=== PATIENT | female | born 1975 | race Caucasian/White ===

== ENCOUNTER → 2016-12-09 | Day surgery (SDC) | payer OTHER ==
--- NOTE | 2016-12-08 23:29 | HHI.HP ---
HPI Chief Complaint abnormal uterine bleeding and persistent / recurrent abnormal pap smears Date Seen: Dec 09, 2016 Travel History International Travel<30 Days: No Contact w/Intl Traveler<30Days: No Known Affected Area: No History of Present Illness HPI The patient is a 41 year old female with a long standing history of heavy menstrual flow and painful cramps. She has recently developed heavier menstrual flow and her menstrual cramps have become even more painful. Her pelvic ultrasound showed adenomyosis. In addition, the patient has been followed by previous shoe repair cobbler for abnormal pap smears for more than 2 years. Since her recent pap smear came back abnormal as well, the decision was made to proceed with surgical treatment. Para: 3 : 3 Miscarriage: 0 : 0 History Past Medical History Narrative Medical Migraine headaches Hypothyroidism Obstetric History Obstetric History Patient had 3 pregnancies and 3 vaginal deliveries Past Surgical History Narrative Surgical -- D&C for abnormal bleeding x 2 -- Breast augmentation -- Abdominoplasty Family History Family History: Negative Social History Alcohol Use: No Tobacco Use: No Substance Abuse: No Allergies-Medications (Allergen,Severity, Reaction): Coded Allergies: No Known Allergies (Unverified , 07/21/16) Home Meds No Active Prescriptions or Reported Meds Review of Systems General / Constitutional: No: Fever, Weight Gain, Chills, Other Eyes: No: Diploplia, Blurred Vision, Visual changes, Pain, Photophobia HENT: No: Headaches, Vertigo, Lightheadedness Cardiovascular: No: Irregular Rhythm, Chest Pain or Discomfort, Palpitations, Tachycardia, Syncope, Varicosities, Edema, Cyanosis Respiratory: No: Cough, Short of Breath, Other Gastrointestinal: No: Nausea, Vomiting, Diarrhea Genitourinary: Pelvic Pain, Menorrhagia, No: Decreased Urinary Output, Oliguria Musculoskeletal: No: Limited ROM, Weakness, Cramping, Edema, Pain Skin: No Rash, No Itching, No Dryness, No Lumps, No Change in Pigmentation, No Change in Nails, No Alopecia, No Lesions Neurologic: No: Weakness, Dizziness, Syncope, Focal Abnormalities, Coordination Problem, Headache, Slurred Speech, Seizures Psychiatric: No: Depression, Suicidal Ideations, Homicidal Ideation Endocrine: No: Heat Intolerance, Cold Intolerance, Polydipsia, Polyuria, Other Physical Exam Narrative GENERAL: Well-nourished, well-developed patient. SKIN: Warm and dry. HEAD: Normocephalic and atraumatic. EYES: No scleral icterus. No injection or drainage. ENT: No nasal drainage noted. Mucous membranes pink. Airway patent. NECK: Supple, trachea midline. No JVD. CARDIOVASCULAR: Regular rate and rhythm without murmurs, gallops, or rubs. RESPIRATORY: Breath sounds equal bilaterally. No accessory muscle use. BREASTS: Bilateral exam showed no masses , no retractions, no nipple discharge. ABDOMEN/GI: Abdomen soft, non-tender, bowel sounds present, no rebound, no guarding GENITOURINARY: External Genitalia: intact and normal in appearance Uterus: normal size, tender to deep palpation; no adnexal masses EXTREMITIES: No cyanosis or edema. BACK: Nontender without obvious deformity. No CVA tenderness. NEUROLOGICAL: Awake and alert. Motor and sensory grossly within normal limits. Five out of 5 muscle strength in all muscle groups. Normal speech. Data Data Vital Signs Reviewed: Yes Assessment/Plan Problem List: (1) Menorrhagia (2) Dysmenorrhea (3) Abnormal uterine bleeding (AUB) (4) Uterus, adenomyosis (5) Cervical high risk human papillomavirus (HPV) DNA test positive (6) Low grade squamous intraepithelial lesion on cytologic smear of cervix ( lgsil) Assessment and Plan 1. 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 discussed / reviewed the procedure -- LEEP + hysteroscopy, D&C and endometrial ablation 3. discussed the risks, benefits and alternatives of the procedure with the patient 4. discussed the risk of infection, bleeding, damage to vaginal renteria and to internal organs if uterine perforation occurs (bowel, bladder, vessels, ureters , nerves), need for further treatment or procedures. 5. patient's questions were answered 6. she verbalized understanding 7. informed consent was obtained Alicja Baron MD Dec 08, 2016 23:29
[~2016-12-09] MED LIST: KETOROLAC TROMETHAMINE 30 MG/ML (IVP) VIAL IV PUSH ONE; LACTATED RINGER'S 1000 ML INJ 1,000 ML ONE; LIDOCAINE 1%/EPINEPHrine 1:100,000 SOLN 20 ML VIAL ONE; MIDAZOLAM HCL 2 MG/2 ML VIAL ONE; ONDANSETRON HCL 4 MG/2 ML VIAL IV PUSH ONE; PROPOFOL 200 MG/20 ML AMP IV ONE; ceFAZolin INJ 1,000 MG VIAL ONE
--- NOTE | 2016-12-09 07:44 | PD.OP ---
Operative Report Date of Surgery: Dec 09, 2016 Preoperative Diagnosis: (1) Menorrhagia (2) Uterus, adenomyosis (3) Dysmenorrhea (4) Low grade squamous intraepithelial lesion on cytologic smear of cervix ( lgsil) (5) Cervical high risk human papillomavirus (HPV) DNA test positive Postoperative Diagnosis: (1) Menorrhagia (2) Uterus, adenomyosis (3) Dysmenorrhea (4) Low grade squamous intraepithelial lesion on cytologic smear of cervix ( lgsil) (5) Cervical high risk human papillomavirus (HPV) DNA test positive Procedure: 1. hysteroscopy 2. D&C 3. endometrial ablation 4. LEEP Anesthesia: General Surgeon: Alicja Baron Special Ed Assistant(s): Staff Operation and Findings: IVF: 500 ml LR + IV antibiotics given before surgery UO: 50 ml EBL: < 25 ml Findings: 1. normal uterine cavity 2. L=4 cm, W=4.3 cm, P=95 Specimens: 1. endometrial curettings 2. LEEP cone Complications: none Condition: stable Disposition: PACU Description of the procedure: The risks, benefits and alternatives of the procedure were discussed with the patient. Her questions were answered. The patient signed informed consent and wished to proceed. She was taken to the operating room with her IV running. She was placed in the supine position and was given general anesthesia without difficulties or complications. The patient was placed in the dorsal lithotomy position and was prepped and draped in the usual sterile fashion. A bivalve speculum was introduced inside the patient's vagina. The anterior aspect of the cervix was grasped with a single tooth tenaculum for manipulation. The cervix was carefully dilated; the uterus sounded and the cervix was measured. A 5 mm Myosure hysteroscope was introduced inside the patient's uterus. The cavity was noted to be within normal limits. A careful curettage was done with a sharp curet. The tissues were sent to pathology. Endometrial ablation was done following [employer] protocol without any difficulties or complications.All the instruments were removed from the patient's uterus. Next, the LEEP procedure was done. The cervix was stained with Lugol. A 10x10 mm loop was used to excise the abnormal areas and to perform the LEEP cone of the cervix. The cervical tissues were sent to pathology. Monsel was placed over the surgical site after it was electrocauterized. Excellent hemostasis was noted. A figure eight stitch was placed at the tenaculum site for hemostasis. All the instruments were removed from the patient's vagina. She tolerated the procedure well; she was successfully awaken from general anesthesia and was transferred to PACU in stable condition. Note: I discussed the surgical findings and surgical procedures with patient's family. Their questions were answered. They verbalized understanding. Alicja Baron MD Dec 09, 2016 07:44
== END | disposition home or self-care (01) ==
LOC: ESDC 06:33
PROVIDERS: ATTEND Obstetrics & Gynecology
DX: N93.9 Abnormal uterine and vaginal bleeding, unspecified (principal); N92.0 Excessive and frequent menstruation with regular cycle; N80.0 Endometriosis of uterus; N94.6 Dysmenorrhea, unspecified; R87.612 Low grade squamous intraepithelial lesion on cytologic smear of cervix (LGSIL); R87.810 Cervical high risk human papillomavirus (HPV) DNA test positive
CPT/HCPCS: 00940; 00952; 57522; 58563; 88305; 88307; J0690; J1885; J2250; J2405; J3010; J7120